=== PATIENT | male | born 1925 | race Caucasian/White ===

== ENCOUNTER 2016-08-18 06:03 | Inpatient (IN) | payer MEDICARE, OTHER ==
[~2016-08-18] VITALS: Ht 165.1 cm; Wt 78.0 kg
[~2016-08-18 06:03] MED LIST: AMIO200T2 PO; AMLO2.5T2 PO; ASPI-605 PO; CARV25TA PO; CHOL10002 PO; METF-494 PO; POTA10CA43 PO; SERT50TA12 PO; SILO8CAP PO; SIMV80TA5 PO
--- NOTE | 2016-08-18 06:07 | NUR ---
PATIENT WALKED INTO ER C/O SOB FOR THE LAST 2 DAYS BUT WORST IN THE LAST 2HRS WITH CP, PT IS ALERT, ORIENTED X 3, NO RESP DISTRESS NOTED OR REPORTED UPON ASSESSMENT. SON IS AT THE BEDSIDE... MD AT BEDSIDE...
[2016-08-18] MEDS ORDERED: ENALAPRILAT DIHYDRATE 1.25 MG/1 ML VIAL IV ONE ×2 (06:15→06:29)
[2016-08-18] MEDS ORDERED: NITROGLYCERIN OINT 1 GM PACKET TP ONE ×2 (06:15→06:24)
[2016-08-18] MEDS ORDERED: NITROGLYCERIN 0.4 MG/TAB BOTTLE SL ONE ×3 (06:15→06:24)
[2016-08-18] MEDS ORDERED: FUROSEMIDE 20 MG/2 ML VIAL IVP ONE (06:15)
[2016-08-18] MEDS ORDERED: ASPIRIN 81 MG TAB.CHEW PO ONE (06:15)
[2016-08-18] MEDS ORDERED: LUBI24CA5 PO (06:21)
[2016-08-18] MEDS ORDERED: SACU1TAB4 PO (06:21)
[2016-08-18] MEDS ORDERED: ALFU10TA10 PO (06:21)
[2016-08-18] MEDS ORDERED: ASPIRIN 81 MG TAB.CHEW ONE (06:24)
[2016-08-18] MEDS ORDERED: FUROSEMIDE 20 MG/2 ML VIAL ONE (06:29)
--- NOTE | 2016-08-18 06:36 | NUR ---
NitroPaste removed due to decreasing b/p, per ERMD.
[2016-08-18 06:44] LABS: BASOPHILS % (AUTO) 0.5 % (0.0-2.0); EOSINOPHILS # (AUTO) 0.2 K/uL (0.0-0.7); EOSINOPHILS % (AUTO) 2.3 % (0.0-7.0); HEMATOCRIT 40.2 % (40-50); HEMOGLOBIN 13.3 G/DL (14.0-18.0); LYMPHOCYTES # (AUTO) 1.3 K/UL (0.8-4.8); LYMPHOCYTES % (AUTO) 16.5 % (20.5-51.5); MEAN CORPUSCULAR HEMOGLOBIN 29.1 UUG (27.0-31.0); MEAN CORPUSCULAR HGB CONC 33 g/dL (32.0-37.0); MEAN CORPUSCULAR VOLUME 87.9 FL (82.0-92.0); MONOCYTES # (AUTO) 0.6 K/UL (0.1-1.30); MONOCYTES % (AUTO) 7.9 % (0.0-11.0); NEUTROPHILS # (AUTO) 5.9 K/UL (1.8-8.9); NEUTROPHILS % (AUTO) 72.8 % (38.5-71.5); PLATELET COUNT (AUTO) 166 K/UL (150-450); RED BLOOD CELL COUNT(AUTO) 4.57 MIL/UL (4.7-6.1)
[2016-08-18 07:00] LABS: CARBON DIOXIDE 26 mmol/L (21-32); CHLORIDE 100 mmol/L (98-107); CREATININE 0.8 mg/dL (0.6-1.3); GLUCOSE 134 mg/dL (74-106); POTASSIUM 4.2 mmol/L (3.5-5.1); UREA NITROGEN, BLOOD 12 mg/dL (7-18)
[2016-08-18 07:13] LABS: ALANINE AMINOTRANSFERASE 16 U/L (16-63); ALKALINE PHOSPHATASE 49 U/L (50-136); ASPARTATE AMINOTRANSFERASE 15 U/L (15-37); BILIRUBIN,DIRECT 0.1 mg/dL (0.0-0.2); BILIRUBIN,TOTAL 0.5 mg/dL (0.2-1.0); TOTAL PROTEIN, SERUM 6.5 g/dL (6.4-8.2)
--- NOTE | 2016-08-18 08:19 | NUR ---
PT WAS TRANSFERED TO TELEMETRY ROOM #219. REPORT WAS GIVEN TO PUSH BENCH OPERATOR HELPER.
[2016-08-18 08:40] VITALS: BP 110/76
--- NOTE | 2016-08-18 08:40 | NUR ---
REPORT RECEIVED FROM SERGEI LUNDY . PT. ARRIVED FROM ER. RESTING IN BED. SON AT BS. NO COMPLAINTS OF CP, NAUSEA OR SOB. LEADS IN PLACE. PACED AT 87 PER DYNAMO REPAIRER. AT SPEAKING WITH PT. AND SON. VSS. CALL LIGHT W/IN REACH. BED IN LOWEST POSITION.
[2016-08-18] MEDS: POTASSIUM CHLORIDE 10 MEQ CAPSULE.SA PO SCH (10:21)
[2016-08-18] MEDS: SERTRALINE HCL 50 MG TABLET PO SCH (10:22)
[2016-08-18 12:10] VITALS: BP 101/64
[2016-08-18] MEDS ORDERED: DEXTROSE 50% 50 ML DISP.SYRIN IV PRN (12:45)
[2016-08-18] MEDS ORDERED: INSULIN REGULAR, HUMAN 300 UNIT/3 ML VIAL SQ PRN (12:45)
[2016-08-18] MEDS: BLOOD SUGAR DIAGNOSTIC 1 EACH STRIP VI SCH ×3 (12:45→21:08)
[2016-08-18] MEDS: ALFUZOSIN HCL 10 MG TAB.SR.24H PO SCH (14:02)
[2016-08-18 16:08] VITALS: BP 105/68
[2016-08-18] MEDS ORDERED: Medication Not On Formulary EA (Sacubitril/Valsartan (Entresto 97 mg-103 mg Tablet) 1 EA PO SCH (17:00)
[2016-08-18] MEDS ORDERED: FUROSEMIDE 20 MG/2 ML VIAL IV ONE (17:45)
[2016-08-18] MEDS: CARVEDILOL 25 MG TABLET PO SCH (17:54)
--- NOTE | 2016-08-18 18:31 | NUR ---
PT. HAS BEEN OOB TO BR AND SITTING IN CHAIR FOR PART OF AFTERNOON WITH [facility]ERANCE. GOOD APPETITE. 2L N/C. TELE HUSAMM SR/PACE IN THE 'S. DENIES CP.
[2016-08-18 19:00] VITALS: BP 114/72
--- NOTE | 2016-08-18 20:00 | NUR ---
PT IS ALERT AND RESPONSIVE. RESP IS EVEN AND UNLABORED C 2L/MIN OF O2 VIA NC. NO SOB. NO ACUTE DISTRESS. PT IS V PACING ON TELE WITH HR OF 83. NO C/O PAIN OR DISCOMFORT. FAMILY AT BEDSIDE.
[2016-08-18] MEDS ORDERED: SIMVASTATIN 20 MG TABLET PO SCH (21:00)
[2016-08-18] MEDS ORDERED: SIMVASTATIN PO SCH (21:00)
[2016-08-18] MEDS ORDERED: ATORVASTATIN 20 MG TABLET PO SCH (21:00)
[2016-08-19 00:25] VITALS: BP 99/63
[2016-08-19 04:15] VITALS: BP 96/56
--- NOTE | 2016-08-19 05:47 | NUR ---
PT IS ALERT AND RESPONSIVE. RESP IS EVEN AND UNLABORED. NO SOB. PT WITH 2L/MIN O2 VIA NC. NO APPARENT DISTRESS. ON TELE MONITORING WITH V PACING WITH HR OF 84. NO C/O PAIN OR DISCOMFORT AT THIS TIME. CALL LIGHT KEPT WITHIN REACH. WILL CONT TO MONITOR.
[2016-08-19 06:46] LABS: BASOPHILS % (AUTO) 0.4 % (0.0-2.0); EOSINOPHILS # (AUTO) 0.1 K/uL (0.0-0.7); EOSINOPHILS % (AUTO) 1.6 % (0.0-7.0); HEMATOCRIT 39.7 % (40-50); HEMOGLOBIN 13.3 G/DL (14.0-18.0); LYMPHOCYTES # (AUTO) 1.3 K/UL (0.8-4.8); LYMPHOCYTES % (AUTO) 14.8 % (20.5-51.5); MEAN CORPUSCULAR HEMOGLOBIN 29.5 UUG (27.0-31.0); MEAN CORPUSCULAR HGB CONC 34 g/dL (32.0-37.0); MONOCYTES # (AUTO) 0.7 K/UL (0.1-1.30); MONOCYTES % (AUTO) 7.7 % (0.0-11.0); NEUTROPHILS # (AUTO) 6.5 K/UL (1.8-8.9); NEUTROPHILS % (AUTO) 75.5 % (38.5-71.5); PLATELET COUNT (AUTO) 165 K/UL (150-450); RED BLOOD CELL COUNT(AUTO) 4.51 MIL/UL (4.7-6.1); WHITE BLOOD COUNT (AUTO) 8.6 K/UL (4.0-11.2)
[2016-08-19 06:54] LABS: ALANINE AMINOTRANSFERASE 13 U/L (16-63); ALKALINE PHOSPHATASE 47 U/L (50-136); ASPARTATE AMINOTRANSFERASE 13 U/L (15-37); BILIRUBIN,TOTAL 0.8 mg/dL (0.2-1.0); CARBON DIOXIDE 26 mmol/L (21-32); CHLORIDE 99 mmol/L (98-107); CREATININE 0.8 mg/dL (0.6-1.3); GLUCOSE 123 mg/dL (74-106); MAGNESIUM 2.1 mg/dL (1.8-2.4); PHOSPHOROUS 2.7 mg/dL (2.5-4.9); POTASSIUM 3.6 mmol/L (3.5-5.1); TOTAL PROTEIN, SERUM 6.2 g/dL (6.4-8.2); UREA NITROGEN, BLOOD 13 mg/dL (7-18)
[2016-08-19] MEDS: BLOOD SUGAR DIAGNOSTIC 1 EACH STRIP VI SCH (07:00)
[2016-08-19 08:00] VITALS: BP_SYST 115; BP_SYST 130; BP_DIAS 57; BP_DIAS 74
[2016-08-19] MEDS ORDERED: ATOR20TA PO (08:38)
[2016-08-19] MEDS: ALFUZOSIN HCL 10 MG TAB.SR.24H PO SCH (08:40)
[2016-08-19] MEDS: POTASSIUM CHLORIDE 10 MEQ CAPSULE.SA PO SCH (08:41)
[2016-08-19] MEDS: SERTRALINE HCL 50 MG TABLET PO SCH (08:41)
[2016-08-19] MEDS: CARVEDILOL 25 MG TABLET PO SCH (08:41)
[2016-08-19] MEDS ORDERED: ASPIRIN EC 81 MG TABLET.DR PO SCH (09:00)
[2016-08-19] MEDS ORDERED: AMIODARONE HCL 200 MG TABLET PO SCH (09:00)
[2016-08-19] MEDS ORDERED: Medication Not On Formulary EA (Lubiprostone (Amitiza) 24 MCG) PO SCH (09:00)
[2016-08-19] MEDS ORDERED: METFORMIN XR 500 MG TAB.SR.24H PO SCH (09:50)
--- NOTE | 2016-08-19 10:07 | NUR ---
DCD Instruction provided patient instructed to follow up with PCP Dr. Barrtet and Dr. Saez. Medications returned. and awaiting for to pick him up. Addendum: 08/19/16 at 1012 by JENNYFER CINTRON RN IV will be dcd upon patient dismissal from the room.
[2016-08-19 10:19] LABS: BAND % (MANUAL) 1 % (0-10); EOSINOPHILS % (MANUAL) 1 % (0-8); LYMPHOCYTES % (MANUAL) 17 % (20-40); MONOCYTES % (MANUAL) 5 % (2-10); NEUTROPHILS % (MANUAL) 76 % (42-75)
--- NOTE | 2016-08-19 11:10 | NUR ---
A call to Dr. Reagan cardiology services. Report given and informed of pt's discharge and desire to leave facility. Cardiac clearance obtained. IV line dcd patient sent home.
[2016-08-19 11:23] VITALS: BP 90/54
--- NOTE | 2016-08-19 11:27 | NUR ---
Patient left room via wheelchair. vital signs stable with no c/of any discomfort. at his side all the time. IV line covered with 4x4 .
== END 2016-08-19 11:30 | disposition home or self-care (01) | DRG 293 ==
LOC: ER 06:07 → TELE 08:22
PROVIDERS: ADMIT Internal Medicine; ATTEND Internal Medicine
DX: I50.33 Acute on chronic diastolic (congestive) heart failure (principal); Z95.0 Presence of cardiac pacemaker; Z95.5 Presence of coronary angioplasty implant and graft; I48.0 Paroxysmal atrial fibrillation; I25.10 Atherosclerotic heart disease of native coronary artery without angina pectoris; E78.5 Hyperlipidemia, unspecified; E78.00 Pure hypercholesterolemia, unspecified; Z79.899 Other long term (current) drug therapy; Z79.82 Long term (current) use of aspirin; E11.9 Type 2 diabetes mellitus without complications; K59.00 Constipation, unspecified; Z85.038 Personal history of other malignant neoplasm of large intestine; Z88.4 Allergy status to anesthetic agent; Z88.8 Allergy status to other drugs, medicaments and biological substances
CPT/HCPCS: 36415; 70030-TC; 71010; 83605; 83735; 84100; 85025; 87040; 93005; 93307; A4663; J1815; J1940; J3490

== ENCOUNTER 2017-01-24 16:20 | Emergency (ER) | payer MEDICARE, OTHER ==
[~2017-01-24] VITALS: Ht 167.6 cm; Wt 77.1 kg
[~2017-01-24 16:20] MED LIST changes: +ALFU10TA10 PO; -AMLO2.5T2 PO; +ATOR20TA PO; -CHOL10002 PO; +LUBI24CA5 PO; +SACU1TAB4 PO; -SILO8CAP PO; -SIMV80TA5 PO
[2017-01-24 17:22] LABS: BASOPHILS # (AUTO) 0.1 K/uL (0.0-8.0); BASOPHILS % (AUTO) 0.9 % (0.0-2.0); EOSINOPHILS # (AUTO) 0.2 K/uL (0.0-0.7); EOSINOPHILS % (AUTO) 2.1 % (0.0-7.0); HEMATOCRIT 38.8 % (36.7-47.1); HEMOGLOBIN 13.2 g/dL (12.5-16.3); LYMPHOCYTES # (AUTO) 1.1 K/uL (20.0-40.0); LYMPHOCYTES % (AUTO) 12.3 % (20.5-51.5); MEAN CORPUSCULAR HEMOGLOBIN 29.4 uug (23.8-33.4); MEAN CORPUSCULAR HGB CONC 34 g/dL (32.5-36.3); MEAN CORPUSCULAR VOLUME 86.3 fL (73.0-96.2); MONOCYTES # (AUTO) 0.6 K/uL (2.0-10.0); MONOCYTES % (AUTO) 6.5 % (0.0-11.0); NEUTROPHILS % (AUTO) 78.2 % (38.5-71.5); PLATELET COUNT (AUTO) 152 K/uL (152-348); WHITE BLOOD COUNT (AUTO) 8.9 K/uL (3.6-10.2)
--- NOTE | 2017-01-24 17:31 | NUR ---
Patient discharged to home in stable conditon with family. Written and verbal after care instructions given. Patient verbalizes understanding of instructions. Stressed follow up with pmd.
[2017-01-24 17:34] LABS: CARBON DIOXIDE 30 mmol/L (21-32); CHLORIDE 104 mmol/L (98-107); CREATININE 0.9 mg/dL (0.6-1.3); GLUCOSE 148 mg/dL (74-106); POTASSIUM 4.8 mmol/L (3.5-5.1); UREA NITROGEN, BLOOD 23 mg/dL (7-18)
== END 2017-01-24 17:32 | disposition home or self-care (01) ==
LOC: ER 16:21
DX: S62.101A Fracture of unspecified carpal bone, right wrist, initial encounter for closed fracture (principal); I10 Essential (primary) hypertension; M19.90 Unspecified osteoarthritis, unspecified site; Z79.82 Long term (current) use of aspirin; Z95.0 Presence of cardiac pacemaker; W18.30XA Fall on same level, unspecified, initial encounter; Y93.89 Activity, other specified; Y92.89 Other specified places as the place of occurrence of the external cause; Y99.8 Other external cause status
CPT/HCPCS: 36415; 70030-TC; 71101; 73110; 73130; 85025; 93005; A4663

== ENCOUNTER 2017-07-23 19:36 | Emergency (ER) | payer MEDICARE, OTHER ==
[~2017-07-23] VITALS: Ht 170.2 cm; Wt 72.6 kg
[2017-07-23] MEDS ORDERED: ALBUTEROL SULFATE 2.5 MG/3 ML NEBU NEB ONE (20:45)
--- NOTE | 2017-07-23 20:50 | NUR ---
Patient does not wish to proceed with medical care recommended by Dr. Gonzáles. Patient given information related to possible complications, up to and including , which could occur as a result of leaving the hospital at this time. Patient verbalizes understanding of risks involved due to leaving against medical advice. Patient has signed AMA form.
== END 2017-07-23 20:53 | disposition left against medical advice (07) ==
LOC: ER 19:38
DX: R07.9 Chest pain, unspecified (principal); R06.02 Shortness of breath; I10 Essential (primary) hypertension; Z95.0 Presence of cardiac pacemaker; Z88.8 Allergy status to other drugs, medicaments and biological substances; Z79.82 Long term (current) use of aspirin; Z79.84 Long term (current) use of oral hypoglycemic drugs; Z79.899 Other long term (current) drug therapy
CPT/HCPCS: 99281; A4663